=== PATIENT | female | born 1970 ===

== ENCOUNTER 2017-05-24 10:27 | Emergency (ER) | payer MEDICAID, OTHER ==
[2017-05-24 10:36] VITALS: BP 131/68; PULSE 79; RESP 16; TEMP 98.9; O2SAT 97; BMI 27.2
[2017-05-24] MEDS ORDERED: Naproxen 500 MG TAB PO ONE (12:19)
--- NOTE | 2017-05-24 13:23 | ED PDOC ---
HPI: General Adult Time Seen by Provider: 05/24/17 10:47 Chief Complaint (Nursing): Upper Extremity Problem/Injury History Per: Patient Additional Complaint(s): Pt. states for the past 2 weeks she's had atraumatic b/l elbow pain. Reports pain radiates down both hands. Denies trauma, fever, rash, weakness. Past Medical History Reviewed: Historical Data, Nursing Documentation, Vital Signs Vital Signs: Last Vital Signs Temp 98.9 F 05/24/17 10:35 Pulse 79 05/24/17 10:35 Resp 16 05/24/17 10:35 BP 131/68 05/24/17 10:35 Pulse Ox 97 05/24/17 13:25 - Medical History PMH: Fibromyalgia, HTN, Rheumatoid Arthritis - Surgical History Surgical History: ( x 3) - Family History Family History: States: No Known Family Hx - Immunization History Hx Tetanus Toxoid Vaccination: No Hx Influenza Vaccination: No Hx Pneumococcal Vaccination: No - Home Medications Home Medications: Ambulatory Orders Medication Instructions Recorded Prednisone 50 mg PO DAILY #7 tab 04/03/13 Sulfamethoxazole/Trimethoprim 1 tab PO BID #20 tab 04/03/13 [Bactrim DS 800 mg-160 mg] Oxycodone HCl/Acetaminophen 1 tab PO Q4 #10 tab 11/03/14 [Percocet 325 mg-5 mg] Acetaminophen/Codeine Phosph 1 tab PO Q6 PRN #15 tab 05/25/15 [Acetaminophen/Codeine 300 mg-30 mg] Albuterol HFA [Ventolin HFA 90 1 puff IH Q6 PRN #1 inh 05/25/15 mcg/actuation (8 g)] Azithromycin [Zithromax Z-Alec] 250 mg PO DAILY #1 packet 05/25/15 Acetaminophen with Codeine 1 each PO Q4H PRN #10 tablet 01/22/16 [Tylenol with Codeine #3 Tablet] Meloxicam [Mobic] 7.5 mg PO DAILY PRN #14 tab 05/24/17 - Allergies Allergies/Adverse Reactions: Allergies Allergy/AdvReac Type Severity Reaction Status Date / Time No Known Allergies Allergy Verified 01/22/16 13:07 Review of Systems ROS Statement: Except As Marked, All Systems Reviewed And Found Negative Physical Exam - Physical Exam Appears: Positive for: Well, Non-toxic, No Acute Distress Skin: Positive for: Normal Color, Warm. Negative for: Rash Pulses-Radial (L): 2+ Pulses-Radial (R): 2+ Extremity: Positive for: Normal ROM (actively of both elbows), Capillary Refill (< 2 seconds of b/l upper extremity), Other (b/l elbows with minimal ecchymosis without tenderness or swelling) Neurologic/Psych: Positive for: Alert, Oriented - ECG O2 Sat by Pulse Oximetry: 97 - Radiology X-Ray: Interpreted by Me (B/L elbow x-rays) X-Ray Interpretation: No Acute Disease - Progress ED Course And Treament: Naproxen 500mg PO ordered. B/L elbow x-rays ordered. Disposition - Clinical Impression Clinical Impression: Elbow pain - Patient ED Disposition Is Patient to be Admitted: No - Disposition Referrals: Vanessa Templeton [Outside] Disposition: Routine/Home Disposition Time: 13:48 Condition: STABLE Prescriptions: Meloxicam [Mobic] 7.5 mg PO DAILY PRN #14 tab PRN Reason: Pain, Mild (1-3) Instructions: Arthralgia (ED) Forms: [employer] (Italian) Print Language: MONGOLIAN
--- NOTE | 2017-05-24 14:24 | RAD ---
PROCEDURE: Radiographs of the right elbow. HISTORY: pain COMPARISON: No prior. FINDINGS: BONES: Bone alignment and mineralization are normal. There is no acute displaced fracture. JOINTS: Normal. No osteoarthritis. SOFT TISSUES: Normal. JOINT EFFUSION: None. OTHER FINDINGS: None. IMPRESSION: No acute fracture or dislocation.
--- NOTE | 2017-05-24 14:25 | RAD ---
PROCEDURE: Radiographs of the left elbow. HISTORY: pain COMPARISON: No prior. FINDINGS: BONES: Bone alignment and mineralization are normal. There is no acute displaced fracture or bone destruction. JOINTS: Normal. No osteoarthritis. SOFT TISSUES: Normal. JOINT EFFUSION: None. OTHER FINDINGS: None IMPRESSION: No acute fracture or dislocation.
== END 2017-05-24 13:58 | disposition home or self-care (01) ==
LOC: H.ER 10:27
DX: M25.551 Pain in right hip (principal); M25.552 Pain in left hip